=== PATIENT | female | born 2000 | race Caucasian/White ===

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

== ENCOUNTER 2020-06-30 17:41 | Inpatient (IN) | payer MEDICAID ==
[2020-06-30] MEDS ORDERED: LACTATED RINGERS 500 ML IV ONE (19:02)
[2020-06-30 19:33] LABS: Bacteria,Urine 3+ /HPF (Negative); Bilirubin,Urine NEG (Negative); Blood,Urine NEG (Negative); Color,Urine Amber (Yellow); Mucus,Urine 3+ /HPF
[2020-06-30] MEDS: LACTATED RINGERS 1000 ML IV SOLN IV SCH ×2 (19:39→20:30)
[2020-06-30] MEDS ORDERED: ACETAMINOPHEN 500 MG TAB PO ONE (20:00)
[2020-06-30] MEDS ORDERED: ACETAMINOPHEN 325 MG TAB PO PRN (20:12)
[2020-06-30 20:13] LABS: Alanine Aminotransferase 7 units/L (7-56); Albumin 3.4 g/dL (3.9-5); Blood Urea Nitrogen 7 mg/dL (7-17); Calcium 8.3 mg/dL (8.4-10.2); Hemolysis Index 0
[2020-06-30 20:22] LABS: BUN/Creatinine Ratio 14
[2020-06-30] MEDS ORDERED: ACETAMINOPHEN 500 MG TAB PO PRN (20:25)
[2020-06-30] MEDS ORDERED: DOCUSATE SODIUM 100 MG CAP PO PRN (20:39)
[2020-06-30] MEDS ORDERED: diphenhydrAMINE 25 MG CAP PO PRN (20:40)
[2020-06-30] MEDS ORDERED: ALUM-MAG HYDROXIDE-SIMETHICONE 200-200-20MG/5ML ORAL LIQD 30 ML PO PRN (20:40)
[2020-06-30] MEDS ORDERED: SIMETHICONE 80 MG CHEW TAB PO PRN (20:40)
[2020-06-30] MEDS ORDERED: MAGNESIUM HYDROXIDE (MOM) ORAL LIQD UDC PO PRN (20:40)
[2020-06-30] MEDS ORDERED: LACTATED RINGERS 1,000 ML IV SCH (20:45)
[2020-06-30 21:05] LABS: Basophils % (Auto) 0.1 % (0.0-1.8); Eosinophils % (Auto) 0.1 % (0.0-4.3); Hematocrit 31.8 % (30.3-42.9); Lymphocytes # (Auto) 1.1 K/mm3 (1.2-5.4); Lymphocytes % (Auto) 8.2 % (13.4-35.0); Mean Corpuscular HGB Conc 35 % (30-34); Mean Corpuscular Volume 87 fl (79-97); Monocytes # (Auto) 1.1 K/mm3 (0.0-0.8); Monocytes % (Auto) 7.8 % (0.0-7.3); Platelet Count 235 K/mm3 (140-440); Red Blood Count 3.67 M/mm3 (3.65-5.03); Red Cell Distribution Width 14.4 % (13.2-15.2)
[2020-06-30] MEDS: POTASSIUM CHLORIDE ER 20 MEQ TAB PO SCH (21:35)
--- NOTE | 2020-06-30 21:42 | XRay Report ---
CHEST 1 VIEW 06/30/2020 8:35 PM INDICATION / CLINICAL INFORMATION: febrile illness. COMPARISON: None available. FINDINGS: SUPPORT DEVICES: None. HEART / MEDIASTINUM: No significant abnormality. LUNGS / PLEURA: No significant pulmonary or pleural abnormality. No pneumothorax. ADDITIONAL FINDINGS: No significant additional findings. IMPRESSION: 1. No acute findings. Signer Name: Janes Coleman MD Signed: 06/30/2020 9:38 PM Workstation Name: [id number]
[2020-06-30] MEDS ORDERED: FAMOTIDINE 20 MG/2 ML INJ IV SCH (22:00)
--- NOTE | 2020-06-30 23:07 | History and Physical Report ---
History of Present Illness Date of examination: 06/30/20 Date of admission: 06/30/20 20:14 Chief complaint: Fever, chills, fatigue, dizziness and headache History of present illness: This is a 19 year-old female who presents complaining of chills, shivering, headache, fever, hip and back pain since yesterday afternoon. She denies vaginal bleeding, LOF, reports decrease movement. Denies coughing or SOB. She denies known exposure to COVID-19 and states no one in her household is ill. She also denies exposure to cat litter box during the as well as nausea, vomiting, diarrhea, contractions, dysuria, pelvic and abdominal pain. Past History : 2 Term Births: 1 Premature Births: 0 Living Children: 1 Para: 1 Mult. Births: 0 Prev : 0 Prev. attempt? 0 Aborta: 0 Elect. Ab: 0 Spont. 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 % Sun Exposure: rarely Family History Risk Factors: Family History of DC in females < 65 years old: no Family History of DC in males < 55 years old: no Dietary Counseling: pn yes Previous Alcohol Use: Signed On - 01/03/2017 Alcohol use: no Past Medical History: Reviewed history from 01/03/2017 and no changes required: Negative Past Medical History Past Surgical History: Reviewed history from 01/03/2017 and no changes required: negative Past Medical History Anesthesia Complications: negative Anemia: negative Autoimmune Disorder: negative Bleeding Disorder: negative Blood Transfusions: negative Breast Disease: negative Diabetes: negative Heart Disease: negative Hypertension: negative Hepatitis/Liver Disease: negative Kidney Disease/UTI: negative Neurologic/Epilepsy/Migraines: negative Phlebitis/Varicosities: negative Psychiatric: negative Pulmonary Disease/Asthma: negative Thyroid Disease: negative Hospitalizations: negative Surgery (Non-vault clerk): negative Abnormal PAP: negative EMILY Exposure: negative Infertility: negative Uterine Anomaly: negative Uterine Surgery (not C/S): negative Other Gynecologic Problems: negative Social Hx: Patient is single [employer] 12 th grade Infection History Hx of STD: none HIV Risk Eval: no Hepatitis B Risk Eval: low risk Personal hx. of genital herpes: no Partner hx. of genital herpes: no Rash, Viral, or Febrile illness since last LMP? no Varicella/Chicken Pox Status: No TB Risk: no Genetic History Congenital Heart Defect: Mom: no Dad: no Annmarie Disease: Mom: no Dad: no Thalassemia Mom: no Dad: no Neural Tube Defect Mom: no Dad: no Down's Syndrome Mom: no Dad: no Rubén-Sachs Mom: no Dad: no Sickle Cell Disease/Trait Mom: no Dad: no Hemophilia Mom: no Dad: no Muscular Dystrophy Mom: no Dad: no Cystic Fibrosis Mom: no Dad: no [place] Chorea Mom: no Dad: no Mental Retardation Mom: no Dad: no Fragile X Mom: no Dad: no Other Genetic/Chromosomal Disorder Mom: no Dad: no Child w/other defect Mom: no Dad: no Enviromental Exposures Xray Exposure: no Medication, drug, or alcohol use since LMP: no Chemical/Other Exposure: no Exposure to Cat Liter: yes Hx of Parvovirus (Fifth Disease): no Occupational Exposure to Children: none Active Medications (reviewed today): TABLET ( VIT-FE FUMARATE-FA TABS) Current Allergies (reviewed today): No known allergies Past History - Obstetrical History Expected Date of Delivery: 09/14/20 Actual Gestation: 29 Week(s) 1 Day(s) : 2 Hx # Term Pregnancies: 1 Medications and Allergies Allergies Allergy/AdvReac Type Severity Reaction Status Date / Time No Known Allergies Allergy Verified 08/18/17 08:10 Home Medications Medication Instructions Recorded Confirmed Last Taken Type One Daily Tablet 1 tab PO DAILY 06/30/20 06/30/20 06/29/20 10:00 History Active Meds: Active Medications Acetaminophen (Acetaminophen 500 Mg Tab) 1,000 mg PO Q6H PRN PRN Reason: Pain, Mild (1-3) Al Hydrox/Mg Hydrox/Simethicone (Alum-Mag Hydroxide-Simethicone [phone]/5ml Oral Liqd 30 Ml) 30 ml PO Q6H PRN PRN Reason: Indigestion Diphenhydramine HCl (Diphenhydramine 25 Mg Cap) 25 mg PO Q6H PRN PRN Reason: Itching Docusate Sodium (Docusate Sodium 100 Mg Cap) 100 mg PO Q12H PRN PRN Reason: Constipation Famotidine (Famotidine 20 Mg/2 Ml Inj) 20 mg IV BID [facility] Dextrose/Sodium Chloride (D5ns) 1,000 mls @ 125 mls/hr IV DIRECT MALGORZATA Lactated Ringer's (Lactated Ringers 1000 Ml Iv Soln) 1,000 ml IV DIRECT MALGORZATA Last Admin: 06/30/20 19:39 Dose: 1,000 ml Documented by: Magnesium Hydroxide (Magnesium Hydroxide (Mom) Oral Liqd Udc) 30 ml PO QHS PRN PRN Reason: Laxative Effect Multivitamins/Iron/Calcium ( Dhd73-Rh Fumarate-Folic Acid Vit Tab) 1 each PO QDAY MALGORZATA Potassium Chloride (Potassium Chloride Er 20 Meq Tab) 40 meq PO BID MALGORZATA Stop: 07/01/20 10:01 Last Admin: 06/30/20 21:35 Dose: 40 meq Documented by: Simethicone (Simethicone 80 Mg Chew Tab) 80 mg PO Q6H PRN PRN Reason: Gas pain Sodium Chloride (Sodium Chloride 0.9% 10 Ml Flush Syringe) 10 ml IV PRN PRN PRN Reason: LINE FLUSH Review of Systems All systems: negative Constitutional: fever, chills, sweats Musculoskeletal: low back pain - Vital Signs Vital signs: Vital Signs Pulse BP 160 H 106/66 06/30/20 18:55 06/30/20 18:55 Temp Pulse Resp BP Pulse Ox 97.9 F 106 H 17 103/63 99 06/30/20 22:51 06/30/20 22:54 06/30/20 22:51 06/30/20 21:39 06/30/20 22:54 - Physical Exam Breasts: Positive: deferred Lungs: Positive: Normal air movement, Other (? crackles (B) bases) Abdomen: Positive: normal appearance, soft, normal bowel sounds. Negative: distention, tenderness, guarding Extremities: Positive: normal. Negative: tenderness, edema - Obstetrical FHR: category 1 (Appropriate for [place]) Uterine Contraction Monitor Mode: External Uterine Contraction Pattern: Irregular Results Result Diagrams: 06/30/20 20:30 06/30/20 19:40 Abnormal lab results 06/30/20 06/30/20 06/30/20 Range/Units 19:40 20:30 Unknown WBC 13.9 H (4.5-11.0) K/mm3 MCHC 35 H (30-34) % Lymph % (Auto) 8.2 L (13.4-35.0) % [place] % (Auto) 7.8 H (0.0-7.3) % Lymph # (Auto) 1.1 L (1.2-5.4) K/mm3 [place] # (Auto) 1.1 H (0.0-0.8) K/mm3 Seg Neutrophils % 83.8 H (40.0-70.0) % Seg Neutrophils # 11.7 H (1.8-7.7) K/mm3 Sodium 130 L (137-145) mmol/L Potassium 3.2 L (3.6-5.0) mmol/L Chloride 97.8 L (98-107) mmol/L Carbon Dioxide 19 L (22-30) mmol/L Creatinine 0.5 L (0.6-1.2) mg/dL Glucose 112 H (65-100) mg/dL Calcium 8.3 L (8.4-10.2) mg/dL Albumin 3.4 L (3.9-5) g/dL Urine WBC (Auto) 71.0 H (0.0-6.0) /HPF U Epithel Cells (Auto) 42.0 H (0-13.0) /HPF All other labs normal. Chest x-ray: report reviewed Assessment and Plan - Patient Problems (1) 29 weeks gestation of Current Visit: Yes Status: Acute (2) Febrile illness, acute Current Visit: Yes Status: Acute Plan to address problem: No evidence for chorioamnionitis Blood and urine cultures ordered COVID-19 ordered Will start Rocephin empirically (3) Hypokalemia Current Visit: Yes Status: Acute Plan to address problem: KCl 40meq po bid x2 ordered, will recheck in the am (4) Hyponatremia Current Visit: Yes Status: Acute Plan to address problem: NS for IVF
[2020-06-30] MEDS: cefTRIAXone/NS 1 GM/50 ML 1 GM/50 ML BAG IV SCH (23:37)
[2020-06-30] MEDS: D5W/0.9% NACL 1,000 ML IV SCH (23:40)
[2020-07-01] MEDS ORDERED: LACTATED RINGERS 1,000 ML ONE (04:41)
[2020-07-01] MEDS ORDERED: LACTATED RINGERS 500 ML IV ONE (05:01)
[2020-07-01] MEDS: ACETAMINOPHEN 500 MG TAB PO ONE ×2 (05:21→18:13)
[2020-07-01] MEDS ORDERED: ACETAMINOPHEN 325 MG TAB PO PRN (06:49)
--- NOTE | 2020-07-01 07:37 | Progress Note ---
Assessment and Plan Patient resting in bed, states " I feel so much better." She states she still has some pain over her tailbone but overall feels much better. Temp 99.9 @ 0727 this morning and maternal tachycaria present. skin feels warm to touch, no CVAT, no abd tenderness or pain with palpation. frequent FM noted during assessment. Discussed labs and plan for today. Patient verbalizes understanding. UC and BC x2 pending. RN master repeat CBC & CMP. Will continue to monitor and consult ID if needed. - Patient Problems (1) 29 weeks gestation of Current Visit: Yes Status: Acute Plan to address problem: CAT 1 FHT no CTX noted (2) Febrile illness, acute Current Visit: Yes Status: Acute Plan to address problem: No evidence for chorioamnionitis at this time Blood and urine cultures - pending COVID-19 ordered to be collected today Rocephin empirically (3) Hypokalemia Current Visit: Yes Status: Acute Plan to address problem: labs ordered for this morning (4) Hyponatremia Current Visit: Yes Status: Acute Plan to address problem: labs ordered for this morning Subjective - Subjective Date of service: 07/01/20 Principal diagnosis: IUP @ 29+2; fever Patient reports: movement normal, no new complaints, no loss of fluid, no vaginal bleeding, no contractions Objective - Vital Signs Vital Signs: Vital Signs - 12hr 06/30/20 06/30/20 06/30/20 19:37 19:39 19:44 Temperature Pulse Rate 153 H 149 H 140 H Respiratory Rate Blood Pressure 101/60 O2 Sat by Pulse 97 98 Oximetry 06/30/20 06/30/20 06/30/20 19:49 19:52 19:54 Temperature Pulse Rate 135 H 133 H 136 H Respiratory Rate Blood Pressure 97/54 O2 Sat by Pulse 97 98 Oximetry 06/30/20 06/30/20 06/30/20 19:59 20:04 20:07 Temperature Pulse Rate 131 H 130 H 131 H Respiratory Rate Blood Pressure 93/51 O2 Sat by Pulse 97 98 Oximetry 06/30/20 06/30/20 06/30/20 20:09 20:14 20:19 Temperature Pulse Rate 132 H 130 H 130 H Respiratory Rate Blood Pressure O2 Sat by Pulse 97 97 98 Oximetry 06/30/20 06/30/20 06/30/20 20:22 20:24 20:29 Temperature Pulse Rate 134 H 133 H 141 H Respiratory Rate Blood Pressure 90/52 O2 Sat by Pulse 98 97 Oximetry 06/30/20 06/30/20 06/30/20 20:49 20:54 20:59 Temperature Pulse Rate 127 H 134 H 129 H Respiratory Rate Blood Pressure O2 Sat by Pulse 100 100 99 Oximetry 06/30/20 06/30/20 06/30/20 21:04 21:09 21:13 Temperature 98.9 F Pulse Rate 125 H 133 H 127 H Respiratory 18 Rate Blood Pressure O2 Sat by Pulse 100 100 Oximetry 06/30/20 06/30/20 06/30/20 21:17 21:22 21:27 Temperature Pulse Rate 134 H 134 H 132 H Respiratory Rate Blood Pressure O2 Sat by Pulse 100 99 100 Oximetry 06/30/20 06/30/20 06/30/20 21:32 21:37 21:39 Temperature Pulse Rate 119 H 129 H 118 H Respiratory Rate Blood Pressure 103/63 O2 Sat by Pulse 99 100 Oximetry 06/30/20 06/30/20 06/30/20 21:42 21:54 21:59 Temperature Pulse Rate 125 H 129 H 123 H Respiratory Rate Blood Pressure O2 Sat by Pulse 100 100 98 Oximetry 06/30/20 06/30/20 06/30/20 22:04 22:09 22:14 Temperature Pulse Rate 116 H 111 H 105 H Respiratory Rate Blood Pressure O2 Sat by Pulse 99 99 99 Oximetry 06/30/20 06/30/20 06/30/20 22:19 22:24 22:29 Temperature Pulse Rate 108 H 108 H 106 H Respiratory Rate Blood Pressure O2 Sat by Pulse 100 98 98 Oximetry 06/30/20 06/30/20 06/30/20 22:34 22:39 22:44 Temperature Pulse Rate 105 H 107 H 103 H Respiratory Rate Blood Pressure O2 Sat by Pulse 98 99 99 Oximetry 06/30/20 06/30/20 06/30/20 22:49 22:51 22:54 Temperature 97.9 F Pulse Rate 108 H 106 H Respiratory 17 Rate Blood Pressure O2 Sat by Pulse 98 99 Oximetry 06/30/20 06/30/20 06/30/20 23:16 23:21 23:26 Temperature Pulse Rate 113 H 106 H 103 H Respiratory Rate Blood Pressure O2 Sat by Pulse 99 99 100 Oximetry 06/30/20 06/30/20 06/30/20 23:31 23:36 23:39 Temperature Pulse Rate 105 H 105 H 109 H Respiratory Rate Blood Pressure 100/61 O2 Sat by Pulse 98 99 Oximetry 06/30/20 06/30/20 06/30/20 23:41 23:46 23:51 Temperature Pulse Rate 107 H 102 H 110 H Respiratory Rate Blood Pressure O2 Sat by Pulse 99 99 100 Oximetry 06/30/20 07/01/20 07/01/20 23:56 00:01 00:06 Temperature Pulse Rate 118 H 113 H 103 H Respiratory Rate Blood Pressure O2 Sat by Pulse 99 99 96 Oximetry 07/01/20 07/01/20 07/01/20 00:11 00:13 00:16 Temperature 97.7 F Pulse Rate 114 H 98 H Respiratory 16 Rate Blood Pressure O2 Sat by Pulse 99 98 Oximetry 07/01/20 07/01/20 07/01/20 00:21 00:26 00:31 Temperature Pulse Rate 104 H 106 H 104 H Respiratory Rate Blood Pressure O2 Sat by Pulse 98 98 97 Oximetry 07/01/20 07/01/20 07/01/20 00:36 00:41 00:46 Temperature Pulse Rate 99 H 96 H 105 H Respiratory Rate Blood Pressure O2 Sat by Pulse 97 97 97 Oximetry 07/01/20 07/01/20 07/01/20 00:51 00:56 01:01 Temperature Pulse Rate 100 H 107 H 107 H Respiratory Rate Blood Pressure O2 Sat by Pulse 96 97 97 Oximetry 07/01/20 07/01/20 07/01/20 01:06 01:11 01:16 Temperature Pulse Rate 108 H 103 H 107 H Respiratory Rate Blood Pressure O2 Sat by Pulse 97 97 97 Oximetry 07/01/20 07/01/20 07/01/20 01:21 01:26 01:31 Temperature Pulse Rate 104 H 106 H 103 H Respiratory Rate Blood Pressure O2 Sat by Pulse 98 98 98 Oximetry 07/01/20 07/01/20 07/01/20 01:36 01:41 01:46 Temperature Pulse Rate 107 H 104 H 98 H Respiratory Rate Blood Pressure O2 Sat by Pulse 99 99 98 Oximetry 07/01/20 07/01/20 07/01/20 01:51 01:56 02:01 Temperature Pulse Rate 107 H 101 H 103 H Respiratory Rate Blood Pressure O2 Sat by Pulse 98 99 98 Oximetry 07/01/20 07/01/20 07/01/20 02:06 02:11 02:16 Temperature Pulse Rate 102 H 107 H 102 H Respiratory Rate Blood Pressure O2 Sat by Pulse 99 100 99 Oximetry 07/01/20 07/01/20 07/01/20 02:21 02:26 02:31 Temperature Pulse Rate 104 H 106 H 110 H Respiratory Rate Blood Pressure O2 Sat by Pulse 100 100 100 Oximetry 07/01/20 07/01/20 07/01/20 02:36 02:41 02:46 Temperature Pulse Rate 109 H 105 H 106 H Respiratory Rate Blood Pressure O2 Sat by Pulse 100 100 99 Oximetry 07/01/20 07/01/20 07/01/20 02:51 02:56 03:01 Temperature Pulse Rate 108 H 105 H 105 H Respiratory Rate Blood Pressure O2 Sat by Pulse 99 99 100 Oximetry 07/01/20 07/01/20 07/01/20 03:06 03:11 03:16 Temperature Pulse Rate 108 H 115 H 123 H Respiratory Rate Blood Pressure O2 Sat by Pulse 100 100 100 Oximetry 07/01/20 07/01/20 07/01/20 03:21 03:22 03:23 Temperature 100 F H Pulse Rate 126 H 122 H Respiratory 15 Rate Blood Pressure 98/54 O2 Sat by Pulse 100 Oximetry 07/01/20 07/01/20 07/01/20 03:26 03:31 03:36 Temperature Pulse Rate 118 H 119 H 120 H Respiratory Rate Blood Pressure O2 Sat by Pulse 100 98 98 Oximetry 07/01/20 07/01/20 07/01/20 03:41 03:46 03:51 Temperature Pulse Rate 122 H 130 H 129 H Respiratory Rate Blood Pressure O2 Sat by Pulse 100 99 99 Oximetry 07/01/20 07/01/20 07/01/20 03:56 04:01 04:06 Temperature Pulse Rate 129 H 128 H 131 H Respiratory Rate Blood Pressure O2 Sat by Pulse 99 99 100 Oximetry 07/01/20 07/01/20 07/01/20 04:18 04:19 04:20 Temperature 103 F H Pulse Rate 74 149 H Respiratory Rate Blood Pressure O2 Sat by Pulse 98 92 Oximetry 07/01/20 07/01/20 07/01/20 04:23 04:28 04:33 Temperature Pulse Rate 141 H 147 H 138 H Respiratory Rate Blood Pressure O2 Sat by Pulse 99 99 99 Oximetry 07/01/20 07/01/20 07/01/20 04:38 04:43 04:48 Temperature Pulse Rate 142 H 137 H 150 H Respiratory Rate Blood Pressure O2 Sat by Pulse 100 99 100 Oximetry 07/01/20 07/01/20 07/01/20 04:53 04:58 05:03 Temperature Pulse Rate 139 H 139 H 141 H Respiratory Rate Blood Pressure O2 Sat by Pulse 99 100 100 Oximetry 07/01/20 07/01/20 07/01/20 05:08 05:13 05:18 Temperature Pulse Rate 140 H 137 H 134 H Respiratory Rate Blood Pressure O2 Sat by Pulse 100 99 98 Oximetry 07/01/20 07/01/20 07/01/20 05:23 05:28 05:33 Temperature Pulse Rate 134 H 133 H 130 H Respiratory Rate Blood Pressure O2 Sat by Pulse 98 99 97 Oximetry 07/01/20 07/01/20 07/01/20 05:38 05:43 05:48 Temperature Pulse Rate 124 H 126 H 125 H Respiratory Rate Blood Pressure O2 Sat by Pulse 97 97 98 Oximetry 07/01/20 07/01/20 07/01/20 05:53 05:58 06:03 Temperature 102.3 F H Pulse Rate 126 H 122 H 119 H Respiratory Rate Blood Pressure O2 Sat by Pulse 97 97 98 Oximetry 07/01/20 07/01/20 07/01/20 06:08 06:13 06:18 Temperature Pulse Rate 123 H 117 H 119 H Respiratory Rate Blood Pressure O2 Sat by Pulse 98 96 97 Oximetry 07/01/20 07/01/20 07/01/20 06:23 06:28 06:33 Temperature Pulse Rate 114 H 114 H 116 H Respiratory Rate Blood Pressure O2 Sat by Pulse 97 96 96 Oximetry 07/01/20 07/01/20 07/01/20 06:38 06:43 06:48 Temperature Pulse Rate 114 H 126 H 111 H Respiratory Rate Blood Pressure O2 Sat by Pulse 96 98 97 Oximetry 07/01/20 07/01/20 07/01/20 06:53 06:58 07:03 Temperature Pulse Rate 116 H 114 H 118 H Respiratory Rate Blood Pressure O2 Sat by Pulse 99 97 99 Oximetry 07/01/20 07/01/20 07/01/20 07:06 07:08 07:13 Temperature Pulse Rate 123 H 118 H 118 H Respiratory Rate Blood Pressure 95/52 O2 Sat by Pulse 99 99 Oximetry 07/01/20 07/01/20 07/01/20 07:18 07:23 07:27 Temperature 99.9 F H Pulse Rate 125 H 121 H Respiratory Rate Blood Pressure O2 Sat by Pulse 100 97 Oximetry 07/01/20 07/01/20 07:28 07:33 Temperature Pulse Rate 120 H 119 H Respiratory Rate Blood Pressure O2 Sat by Pulse 98 98 Oximetry - Exam Cardiovascular: Regular rate Lungs: Normal air movement Abdomen: Present: normal appearance, soft. Absent: tenderness, guarding, rigidity Vulva: both: normal Uterus: Present: normal, fundal height above umbilicus FHR: category 1 Uterine Contraction Monitor Mode: External Uterine Contraction Pattern: Absent Uterine Tone Measurement Phase: Resting Extremities: normal Deep Tendon Reflex Grade: Normal +2 - Labs Labs: Abnormal Labs 06/30/20 06/30/20 06/30/20 19:40 20:30 Unknown WBC 13.9 H MCHC 35 H Lymph % (Auto) 8.2 L [place] % (Auto) 7.8 H Lymph # (Auto) 1.1 L [place] # (Auto) 1.1 H Seg Neutrophils % 83.8 H Seg Neutrophils # 11.7 H Sodium 130 L Potassium 3.2 L Chloride 97.8 L Carbon Dioxide 19 L Creatinine 0.5 L Glucose 112 H Calcium 8.3 L Albumin 3.4 L Urine WBC (Auto) 71.0 H U Epithel Cells (Auto) 42.0 H Laboratory Results - last 24 hr 06/30/20 06/30/20 06/30/20 19:40 20:30 20:30 WBC 13.9 H RBC 3.67 Hgb 11.0 Hct 31.8 MCV 87 MCH 30 MCHC 35 H RDW 14.4 Plt Count 235 Lymph % (Auto) 8.2 L [place] % (Auto) 7.8 H Eos % (Auto) 0.1 Baso % (Auto) 0.1 Lymph # (Auto) 1.1 L [place] # (Auto) 1.1 H Eos # (Auto) 0.0 Baso # (Auto) 0.0 Seg Neutrophils % 83.8 H Seg Neutrophils # 11.7 H Sodium 130 L Potassium 3.2 L Chloride 97.8 L Carbon Dioxide 19 L Anion Gap 16 BUN 7 Creatinine 0.5 L Estimated GFR > 60 BUN/Creatinine Ratio 14 Glucose 112 H Lactic Acid Calcium 8.3 L Total Bilirubin 0.40 AST 14 ALT 7 Alkaline Phosphatase 104 Total Protein 6.9 Albumin 3.4 L Albumin/Globulin Ratio 1.0 Urine Color Urine Turbidity Urine pH Ur Specific [place] Urine Protein Urine Glucose (UA) Urine Ketones Urine Blood Urine Nitrite Urine Bilirubin Urine Urobilinogen Ur Leukocyte Esterase Urine WBC (Auto) Urine RBC (Auto) U Epithel Cells (Auto) Urine Bacteria (Auto) Urine Mucus Blood Type O POSITIVE Antibody Screen Negative 06/30/20 06/30/20 21:03 Unknown WBC RBC Hgb Hct MCV MCH MCHC RDW Plt Count Lymph % (Auto) [place] % (Auto) Eos % (Auto) Baso % (Auto) Lymph # (Auto) [place] # (Auto) Eos # (Auto) Baso # (Auto) Seg Neutrophils % Seg Neutrophils # Sodium Potassium Chloride Carbon Dioxide Anion Gap BUN Creatinine Estimated GFR BUN/Creatinine Ratio Glucose Lactic Acid 1.40 Calcium Total Bilirubin AST ALT Alkaline Phosphatase Total Protein Albumin Albumin/Globulin Ratio Urine Color [place] Urine Turbidity Cloudy Urine pH 6.0 Ur Specific [place] 1.020 Urine Protein 100 mg/dl Urine Glucose (UA) Neg Urine Ketones 80 Urine Blood Neg Urine Nitrite Neg Urine Bilirubin Neg Urine Urobilinogen 4.0 Ur Leukocyte Esterase Lg Urine WBC (Auto) 71.0 H Urine RBC (Auto) 29.0 U Epithel Cells (Auto) 42.0 H Urine Bacteria (Auto) 3+ Urine Mucus 3+ Blood Type Antibody Screen
[2020-07-01 08:17] LABS: Basophils % (Auto) 0.1 % (0.0-1.8); Eosinophils % (Auto) 0.1 % (0.0-4.3); Hematocrit 27.3 % (30.3-42.9); Hemoglobin 9.1 gm/dl (10.1-14.3); Lymphocytes % (Auto) 8.9 % (13.4-35.0); Mean Corpuscular HGB Conc 34 % (30-34); Mean Corpuscular Volume 87 fl (79-97); Monocytes % (Auto) 8.8 % (0.0-7.3); Platelet Count 212 K/mm3 (140-440); Red Blood Count 3.15 M/mm3 (3.65-5.03); Red Cell Distribution Width 14.4 % (13.2-15.2)
[2020-07-01 08:40] LABS: Alanine Aminotransferase 7 units/L (7-56); Albumin 2.6 g/dL (3.9-5); BUN/Creatinine Ratio 13; Blood Urea Nitrogen 5 mg/dL (7-17); Calcium 7.6 mg/dL (8.4-10.2); Hemolysis Index 0
[2020-07-01] MEDS: D5W/0.9% NACL 1,000 ML IV SCH (10:31)
[2020-07-01] MEDS: cefTRIAXone/NS 1 GM/50 ML 1 GM/50 ML BAG IV SCH (10:31)
[2020-07-01] MEDS: POTASSIUM CHLORIDE ER 20 MEQ TAB PO SCH ×2 (10:32→18:53)
[2020-07-01] MEDS: PRENATAL VIT27-FE FUMARATE-FOLIC ACID VIT TAB PO SCH (10:32)
[2020-07-01] MEDS ORDERED: POTASSIUM CHLORIDE ER 20 MEQ TAB PO NR (10:34)
--- NOTE | 2020-07-01 11:16 | Consultation ---
History of Present Illness - Reason for Consult Consult date: 07/01/20 Fever unknown origin/ Requesting physician: NILDA JOSUE - History of Present Illness 19-year-old female with no medical history, admitted on 06/30/2020 with 29 weeks , secondary to 24-hour history of chills high fever, right lower back pain/flank pain. Increased urinary frequency however denies any dysuria, hematuria. 3 of previous UTIs. Patient denies any history of's. Patient denies any vagina bleeding. Patient denies any cough or shortness of breath. On arrival, temperature 103, HR 160, RR 97, BP 106/66. Initial WBC 13.9. Creatinine 0.5. Urinalysis with 71 WBCs and large leukocyte esterase. Urine culture 07/15/2020 with gram-negative bacilli> 100,000 CFU. Blood culture 06/30/2020 pending. Chest x-ray unremarkable. Review of Systems: positive in bold print General: fever, chills, malaise Cutaneous: rash, pruritus Head: headaches or injury Eyes: changes in vision, eye pain, double vision Ears: ear pain, ear discharge, ringing or hearing loss Nose: nose bleeding, stuffiness Mouth & throat: bleeding gums, horseness, no dental problems, or swollen glands Neck: no pain, node enlargement/lumps, tyroid enlargement or tenderness Respiratory: SOB, cough, MONGE, wheezing, sputum, hemoptysis, pleuritic chest pain Cardiovascular: chest pain, leg edema, cyanosis, MONGE, orthopnea Musculoskeletal: edema, deformities, pain Gastrointestinal: nausea, vomiting, hematemesis, diarrhea, constipation, melena, bright red blood in stools, fecal incontinence, jaundice Genitourinary/Reproductive: frequent urination, right flank pain, denies dysuria, hematuria, incontinence Neurogical: seizures, headaches, weakness, paresthesias, loss of speech or vision; memory loss, vertigo, tremors, numbness Psychiatric: stable mood; excessive anxiety, sadness or moodiness Medications and Allergies Allergies Allergy/AdvReac Type Severity Reaction Status Date / Time No Known Allergies Allergy Verified 08/18/17 08:10 Home Medications Medication Instructions Recorded Confirmed Last Taken Type One Daily Tablet 1 tab PO DAILY 06/30/20 06/30/20 06/29/20 10:00 History Active Meds: Active Medications Acetaminophen (Acetaminophen 500 Mg Tab) 1,000 mg PO Q6H PRN PRN Reason: Pain, Mild (1-3) Al Hydrox/Mg Hydrox/Simethicone (Alum-Mag Hydroxide-Simethicone [phone]/5ml Oral Liqd 30 Ml) 30 ml PO Q6H PRN PRN Reason: Indigestion Diphenhydramine HCl (Diphenhydramine 25 Mg Cap) 25 mg PO Q6H PRN PRN Reason: Itching Docusate Sodium (Docusate Sodium 100 Mg Cap) 100 mg PO Q12H PRN PRN Reason: Constipation Dextrose/Sodium Chloride (D5ns) 1,000 mls @ 125 mls/hr IV DIRECT MALGORZATA Last Admin: 07/01/20 10:31 Dose: 125 mls/hr Documented by: Ceftriaxone Sodium (Rocephin/Ns 1 Gm/50 Ml) 1 gm in 50 mls @ 100 mls/hr IV Q24 HR MALGORZATA; Protocol Stop: 07/02/20 10:29 Last Admin: 07/01/20 10:31 Dose: 100 mls/hr Documented by: Magnesium Hydroxide (Magnesium Hydroxide (Mom) Oral Liqd Udc) 30 ml PO QHS PRN PRN Reason: Laxative Effect Multivitamins/Iron/Calcium ( Frq40-Dr Fumarate-Folic Acid Vit Tab) 1 each PO QDAY MALGORZATA Last Admin: 07/01/20 10:32 Dose: 1 each Documented by: Potassium Chloride (Potassium Chloride Er 20 Meq Tab) 40 meq PO ONCE NR Stop: 07/01/20 13:00 Simethicone (Simethicone 80 Mg Chew Tab) 80 mg PO Q6H PRN PRN Reason: Gas pain Sodium Chloride (Sodium Chloride 0.9% 10 Ml Flush Syringe) 10 ml IV PRN PRN PRN Reason: LINE FLUSH Physical Examination - Physical Exam Narrative exam: General appearance: Alert in NAD pleasant Eyes: anicteric sclerae, moist conjunctivae; no lid-lag; PERRLA HENT: Normocephalic, Atraumatic; normal external ears, nares open, oropharynx clear Neck: supple, tracheal midline, no JVD Lungs: CTA, with normal respiratory effort and no intercostal retractions CV: RRR no murmur Abdomen: Soft, non-tender; uterus. No costovertebral angle tenderness Extremities: no edema, no cyanosis Skin: No rash. Psych: no agitated Neuro: alert and oriented x 3. Moving all extermities - Constitutional Vitals: Vital Signs Temp Pulse Resp BP Pulse Ox 98.7 F 116 H 15 95/52 100 07/01/20 10:33 07/01/20 11:06 07/01/20 03:22 07/01/20 07:06 07/01/20 11:06 Temperature -Last 24 Hours Temperature 98.7 F Temperature 99.9 F Temperature 102.3 F Temperature 103 F Temperature 100 F Temperature 97.7 F Temperature 97.9 F Temperature 98.9 F Temperature 103 F Temperature 103 F Results - Labs CBC & Chem 7: 07/01/20 08:04 07/01/20 08:04 Labs: Abnormal lab results 06/30/20 06/30/20 06/30/20 Range/Units 19:40 20:30 Unknown WBC 13.9 H (4.5-11.0) K/mm3 RBC (3.65-5.03) M/mm3 Hgb (10.1-14.3) gm/dl Hct (30.3-42.9) % MCHC 35 H (30-34) % Lymph % (Auto) 8.2 L (13.4-35.0) % [place] % (Auto) 7.8 H (0.0-7.3) % Lymph # (Auto) 1.1 L (1.2-5.4) K/mm3 [place] # (Auto) 1.1 H (0.0-0.8) K/mm3 Seg Neutrophils % 83.8 H (40.0-70.0) % Seg Neutrophils # 11.7 H (1.8-7.7) K/mm3 Sodium 130 L (137-145) mmol/L Potassium 3.2 L (3.6-5.0) mmol/L Chloride 97.8 L (98-107) mmol/L Carbon Dioxide 19 L (22-30) mmol/L BUN (7-17) mg/dL Creatinine 0.5 L (0.6-1.2) mg/dL Glucose 112 H (65-100) mg/dL Calcium 8.3 L (8.4-10.2) mg/dL Total Protein (6.3-8.2) g/dL Albumin 3.4 L (3.9-5) g/dL Urine WBC (Auto) 71.0 H (0.0-6.0) /HPF U Epithel Cells (Auto) 42.0 H (0-13.0) /HPF 07/01/20 07/01/20 Range/Units 08:04 08:04 WBC 11.7 H (4.5-11.0) K/mm3 RBC 3.15 L (3.65-5.03) M/mm3 Hgb 9.1 L (10.1-14.3) gm/dl Hct 27.3 L (30.3-42.9) % MCHC (30-34) % Lymph % (Auto) 8.9 L (13.4-35.0) % [place] % (Auto) 8.8 H (0.0-7.3) % Lymph # (Auto) 1.0 L (1.2-5.4) K/mm3 [place] # (Auto) 1.0 H (0.0-0.8) K/mm3 Seg Neutrophils % 82.1 H (40.0-70.0) % Seg Neutrophils # 9.6 H (1.8-7.7) K/mm3 Sodium 135 L (137-145) mmol/L Potassium 3.3 L (3.6-5.0) mmol/L Chloride (98-107) mmol/L Carbon Dioxide 20 L (22-30) mmol/L BUN 5 L (7-17) mg/dL Creatinine 0.4 L (0.6-1.2) mg/dL Glucose 106 H (65-100) mg/dL Calcium 7.6 L (8.4-10.2) mg/dL Total Protein 5.7 L (6.3-8.2) g/dL Albumin 2.6 L (3.9-5) g/dL Urine WBC (Auto) (0.0-6.0) /HPF U Epithel Cells (Auto) (0-13.0) /HPF Assessment and Plan Cultures: Urine culture 07/15/2020 gram-negative bacilli> 100,000 CFU. Blood culture 06/30/2020 pending. Assessment: 19-year-old female with no medical history, admitted on 06/30/2020 with 29 weeks , secondary to 24-hour history of chills high fever, right lower back pain/flank pain: #Acute sepsis: Present on admission with fever, tachycardia, leukocytosis; likely due to UTI/pyelonephritis. Blood cultures pending. Chest x-ray negative . #Acute UTI: Suspected right-sided pyelonephritis. Urine culture growing gram- negative bacilli. # 29 weeks Recommendations: -Continue ceftriaxone will increase to 2 g IV once a day -Obtain renal ultrasound, rule out pyelonephritis, hydronephrosis, stone -Follow-up blood culture and urine culture -If isolate is sensitive to cefazolin, okay to discharge on Ceftin 500 mg p.o. twice daily, duration to be determined. If this is only cystitis 7 days is enough. If this is pyelonephritis 14 days recommended. -ID clinic follow-up in 1 to 2 weeks -Educated about importance of waiting until fever breaks for 24 hours before discharge, patient desires to go home tomorrow Will follow. Kassandra Caba MD Infectious Diseases [employer] System Install[employer] [facility] M [phone] O [phone]
[2020-07-01] MEDS ORDERED: cefTRIAXone/NS 1 GM/50 ML 1 GM/50 ML BAG IV SCH (16:00)
[2020-07-01] MEDS: SODIUM CHLORIDE 0.9% 1000 ML 1,000 ML IV SCH (20:56)
[2020-07-02] MEDS: POTASSIUM CHLORIDE ER 20 MEQ TAB PO SCH (09:44)
[2020-07-02] MEDS: cefTRIAXone/NS 2 GM/100 ML 2 GM/100 ML BAG IV SCH (09:44)
[2020-07-02] MEDS: PRENATAL VIT27-FE FUMARATE-FOLIC ACID VIT TAB PO SCH (09:45)
--- NOTE | 2020-07-02 09:52 | Ultrasound Report ---
Renal ultrasound INDICATION: Flank pain. Possible pyelonephritis FINDINGS: Both kidneys measure about 12 cm in length. There is mild bilateral hydronephrosis. There i s a focal tiny echogenic structure measuring about 3 mm within the lower pole the left kidney that ma y represent a focal calculus. Urinary bladder is fluid distended. No drainable perinephric collection s identified. IMPRESSION: Bilateral hydronephrosis. If there strong clinical concern for acute pyelonephritis CT of the abdomen and pelvis with IV contrast is suggested for further evaluation. Signer Name: Andrei James MD Signed: 07/02/2020 9:48 AM Workstation Name: [id number]
[2020-07-02] MEDS: SODIUM CHLORIDE 0.9% 1000 ML 1,000 ML IV SCH (09:57)
--- NOTE | 2020-07-02 10:30 | Progress Note ---
Assessment and Plan Pt reports she feels much better than she did on admission; denies all complaints today. 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 POC reviewed with pt and RN. - Patient Problems (1) 29 weeks gestation of Current Visit: Yes Status: Acute Plan to address problem: Continue to monitor (2) Febrile illness, acute Current Visit: Yes Status: Acute Plan to address problem: No evidence of chorio at this time Coronavirus PCR result negative Blood cultures pending; preliminary result negative Urine cultures pending; preliminary result gram negative goldie Renal ultrasound ordered Continue Rocephin IV as ordered (3) Hypokalemia Current Visit: Yes Status: Acute Plan to address problem: labs and medications as ordered (4) Hyponatremia Current Visit: Yes Status: Acute Plan to address problem: labs ordered Subjective - Subjective Date of service: 07/02/20 Principal diagnosis: IUP @ 29+3; fever Patient reports: movement normal, no new complaints, no loss of fluid, no vaginal bleeding, no contractions Objective - Vital Signs Vital Signs: Vital Signs - 12hr 07/01/20 07/01/20 07/02/20 23:35 23:36 00:07 Temperature 98.3 F Pulse Rate 103 H 103 H 103 H Respiratory Rate Blood Pressure 94/52 Blood Pressure [Right] O2 Sat by Pulse 99 Oximetry 07/02/20 07/02/20 07/02/20 00:12 00:17 00:22 Temperature Pulse Rate 98 H 93 H 94 H Respiratory Rate Blood Pressure Blood Pressure [Right] O2 Sat by Pulse 99 98 98 Oximetry 07/02/20 07/02/20 07/02/20 00:27 00:32 00:37 Temperature Pulse Rate 92 H 96 H 91 H Respiratory Rate Blood Pressure Blood Pressure [Right] O2 Sat by Pulse 98 97 98 Oximetry 07/02/20 07/02/20 07/02/20 00:42 00:47 00:52 Temperature Pulse Rate 91 H 94 H 90 Respiratory Rate Blood Pressure Blood Pressure [Right] O2 Sat by Pulse 98 98 98 Oximetry 07/02/20 07/02/20 07/02/20 00:57 01:02 04:45 Temperature 97.7 F Pulse Rate 90 91 H Respiratory 18 Rate Blood Pressure Blood Pressure [Right] O2 Sat by Pulse 98 98 Oximetry 07/02/20 07/02/20 07/02/20 04:47 04:59 05:04 Temperature Pulse Rate 103 H 107 H 96 H Respiratory Rate Blood Pressure 99/57 Blood Pressure [Right] O2 Sat by Pulse 97 99 Oximetry 07/02/20 07/02/20 07/02/20 05:09 05:14 05:19 Temperature Pulse Rate 99 H 112 H 97 H Respiratory Rate Blood Pressure Blood Pressure [Right] O2 Sat by Pulse 99 98 98 Oximetry 07/02/20 07/02/20 07/02/20 05:24 05:29 05:34 Temperature Pulse Rate 98 H 98 H 100 H Respiratory Rate Blood Pressure Blood Pressure [Right] O2 Sat by Pulse 98 98 98 Oximetry 07/02/20 07/02/20 07/02/20 05:39 05:44 05:49 Temperature Pulse Rate 96 H 98 H 108 H Respiratory Rate Blood Pressure Blood Pressure [Right] O2 Sat by Pulse 98 98 98 Oximetry 07/02/20 07/02/20 07/02/20 05:54 05:59 06:04 Temperature Pulse Rate 101 H 104 H 94 H Respiratory Rate Blood Pressure Blood Pressure [Right] O2 Sat by Pulse 98 97 99 Oximetry 07/02/20 07/02/20 07/02/20 06:09 06:14 06:19 Temperature Pulse Rate 90 98 H 95 H Respiratory Rate Blood Pressure Blood Pressure [Right] O2 Sat by Pulse 97 98 97 Oximetry 07/02/20 07/02/20 07/02/20 06:24 06:29 07:26 Temperature Pulse Rate 97 H 111 H Respiratory Rate Blood Pressure Blood Pressure [Right] O2 Sat by Pulse 97 98 91 Oximetry 07/02/20 07/02/20 07/02/20 07:27 07:28 07:30 Temperature 98.8 F Pulse Rate 100 H 102 H 106 H Respiratory 20 Rate Blood Pressure 98/51 Blood Pressure 98/51 [Right] O2 Sat by Pulse 97 Oximetry 07/02/20 07/02/20 07/02/20 07:33 07:38 07:43 Temperature Pulse Rate 108 H 101 H 106 H Respiratory Rate Blood Pressure Blood Pressure [Right] O2 Sat by Pulse 98 99 99 Oximetry 07/02/20 07/02/20 07/02/20 07:48 07:53 07:58 Temperature Pulse Rate 98 H 95 H 95 H Respiratory Rate Blood Pressure Blood Pressure [Right] O2 Sat by Pulse 99 99 98 Oximetry 07/02/20 07/02/20 07/02/20 08:03 08:08 08:13 Temperature Pulse Rate 90 96 H 86 Respiratory Rate Blood Pressure Blood Pressure [Right] O2 Sat by Pulse 98 99 98 Oximetry 07/02/20 07/02/20 07/02/20 08:18 08:23 09:36 Temperature Pulse Rate 110 H 111 H 107 H Respiratory Rate Blood Pressure Blood Pressure [Right] O2 Sat by Pulse 100 100 100 Oximetry 07/02/20 07/02/20 07/02/20 09:41 09:46 09:51 Temperature Pulse Rate 119 H 111 H 107 H Respiratory Rate Blood Pressure Blood Pressure [Right] O2 Sat by Pulse 99 99 100 Oximetry 07/02/20 07/02/20 07/02/20 09:56 10:01 10:06 Temperature Pulse Rate 110 H 105 H 104 H Respiratory Rate Blood Pressure Blood Pressure [Right] O2 Sat by Pulse 100 100 100 Oximetry 07/02/20 10:11 Temperature Pulse Rate 104 H Respiratory Rate Blood Pressure Blood Pressure [Right] O2 Sat by Pulse 100 Oximetry - Exam Breasts: deferred Cardiovascular: Regular rate Lungs: Clear to auscultation, Normal air movement Abdomen: Present: normal appearance, soft Uterus: Present: normal FHR: auscultation normal, category 1 Uterine Contraction Monitor Mode: External Uterine Contraction Pattern: Absent Extremities: normal - Labs Labs: Abnormal Labs 06/30/20 06/30/20 06/30/20 19:40 20:30 Unknown WBC 13.9 H RBC Hgb Hct MCHC 35 H Lymph % (Auto) 8.2 L [place] % (Auto) 7.8 H Lymph # (Auto) 1.1 L [place] # (Auto) 1.1 H Seg Neutrophils % 83.8 H Seg Neutrophils # 11.7 H Sodium 130 L Potassium 3.2 L Chloride 97.8 L Carbon Dioxide 19 L BUN Creatinine 0.5 L Glucose 112 H Calcium 8.3 L Total Protein Albumin 3.4 L Urine WBC (Auto) 71.0 H U Epithel Cells (Auto) 42.0 H 07/01/20 07/01/20 08:04 08:04 WBC 11.7 H RBC 3.15 L Hgb 9.1 L Hct 27.3 L MCHC Lymph % (Auto) 8.9 L [place] % (Auto) 8.8 H Lymph # (Auto) 1.0 L [place] # (Auto) 1.0 H Seg Neutrophils % 82.1 H Seg Neutrophils # 9.6 H Sodium 135 L Potassium 3.3 L Chloride Carbon Dioxide 20 L BUN 5 L Creatinine 0.4 L Glucose 106 H Calcium 7.6 L Total Protein 5.7 L Albumin 2.6 L Urine WBC (Auto) U Epithel Cells (Auto) Laboratory Results - last 24 hr 07/01/20 09:20 Coronavirus (PCR) Negative
[2020-07-03] MEDS: SODIUM CHLORIDE 0.9% 1000 ML 1,000 ML IV SCH (03:40)
[2020-07-03] MEDS: PRENATAL VIT27-FE FUMARATE-FOLIC ACID VIT TAB PO SCH (09:54)
[2020-07-03] MEDS: POTASSIUM CHLORIDE ER 20 MEQ TAB PO SCH (09:55)
[2020-07-03] MEDS: cefTRIAXone/NS 2 GM/100 ML 2 GM/100 ML BAG IV SCH (09:55)
--- NOTE | 2020-07-03 10:04 | Progress Note ---
<FANTA MENJIVAR - Last Filed: 07/03/20 10:04> Assessment and Plan Pt states she's ready to go home. RN reports difficulty obtaining IV access. Pt declining IV restart; denies pain, fever, chills, and all complaints today. Pt >24hrs afebrile. POC discussed with pt and RN for possible discharge home today on PO meds. Dr Casey consulted. D/C home dependant upon culture ID and sensitivities. - Patient Problems (1) 29 weeks gestation of Current Visit: Yes Status: Acute Plan to address problem: Continue to monitor (2) Febrile illness, acute Current Visit: Yes Status: Acute Plan to address problem: No evidence of chorio at this time Coronavirus PCR result negative Blood cultures pending; preliminary result negative Urine cultures pending; preliminary result gram negative goldie Renal ultrasound with bilateral hydronephrosis ID consult completed (3) Hypokalemia Current Visit: Yes Status: Acute Plan to address problem: labs and medications as ordered (4) Hyponatremia Current Visit: Yes Status: Acute Plan to address problem: labs ordered Subjective - Subjective Date of service: 07/03/20 Principal diagnosis: IUP @ 29+4; fever Patient reports: movement normal, no new complaints, no loss of fluid, no vaginal bleeding, no contractions Objective - Vital Signs Vital Signs: Vital Signs - 12hr 07/02/20 07/03/20 07/03/20 23:26 00:26 03:38 Temperature 98.6 F 98.4 F Pulse Rate 110 H Respiratory Rate Blood Pressure 97/56 Blood Pressure [Right] O2 Sat by Pulse Oximetry 07/03/20 07/03/20 07/03/20 03:39 08:18 08:52 Temperature 97.8 F 98.2 F Pulse Rate 112 H 105 H 96 H Respiratory 18 18 Rate Blood Pressure 105/64 109/68 Blood Pressure 109/68 101/57 [Right] O2 Sat by Pulse 100 Oximetry 07/03/20 08:53 Temperature Pulse Rate 96 H Respiratory Rate Blood Pressure 101/57 Blood Pressure [Right] O2 Sat by Pulse Oximetry - Exam Breasts: deferred Cardiovascular: Regular rate Lungs: Normal air movement Abdomen: Present: normal appearance, soft Uterus: Present: normal FHR: auscultation normal, category 1 Uterine Contraction Monitor Mode: External Uterine Contraction Pattern: Absent Uterine Tone Measurement Phase: Resting Extremities: normal - Labs Labs: Abnormal Labs 06/30/20 06/30/20 06/30/20 19:40 20:30 Unknown WBC 13.9 H RBC Hgb Hct MCHC 35 H Lymph % (Auto) 8.2 L [place] % (Auto) 7.8 H Lymph # (Auto) 1.1 L [place] # (Auto) 1.1 H Seg Neutrophils % 83.8 H Seg Neutrophils # 11.7 H Sodium 130 L Potassium 3.2 L Chloride 97.8 L Carbon Dioxide 19 L BUN Creatinine 0.5 L Glucose 112 H Calcium 8.3 L Total Protein Albumin 3.4 L Urine WBC (Auto) 71.0 H U Epithel Cells (Auto) 42.0 H 07/01/20 07/01/20 07/02/20 08:04 08:04 10:35 WBC 11.7 H RBC 3.15 L Hgb 9.1 L Hct 27.3 L MCHC Lymph % (Auto) 8.9 L [place] % (Auto) 8.8 H Lymph # (Auto) 1.0 L [place] # (Auto) 1.0 H Seg Neutrophils % 82.1 H Seg Neutrophils # 9.6 H Sodium 135 L Potassium 3.3 L 3.3 L Chloride Carbon Dioxide 20 L BUN 5 L Creatinine 0.4 L Glucose 106 H Calcium 7.6 L Total Protein 5.7 L Albumin 2.6 L Urine WBC (Auto) U Epithel Cells (Auto) Laboratory Results - last 24 hr 07/02/20 10:35 Potassium 3.3 L <NILDA CASEY D - Last Filed: 07/03/20 11:46> Assessment and Plan - Patient Problems (1) Pyelonephritis affecting Current Visit: Yes Status: Acute Qualifiers: Trimester: third trimester Qualified Code(s): O23.03 - Infections of kidney in , third trimester Plan to address problem: Will allow home on Ceftin 500mg bid for 14days followed by suppression therapy daily until delivered. Prescription sent to [facility] thru office EMR. (2) Kidney stone Current Visit: Yes Status: Acute Plan to address problem: Non obstucting. Will have patient follow up with urology as an outpatient (3) 29 weeks gestation of Current Visit: Yes Status: Acute (4) Febrile illness, acute Current Visit: Yes Status: Resolved (5) Hypokalemia Current Visit: Yes Status: Resolved (6) Hyponatremia Current Visit: Yes Status: Acute Objective - Vital Signs Vital Signs: Vital Signs - 12hr 07/03/20 07/03/20 07/03/20 00:26 03:38 03:39 Temperature 98.6 F 98.4 F Pulse Rate 112 H Respiratory Rate Blood Pressure 105/64 Blood Pressure [Right] O2 Sat by Pulse Oximetry 07/03/20 07/03/20 07/03/20 08:18 08:52 08:53 Temperature 97.8 F 98.2 F Pulse Rate 105 H 96 H 96 H Respiratory 18 18 Rate Blood Pressure 109/68 101/57 Blood Pressure 109/68 101/57 [Right] O2 Sat by Pulse 100 Oximetry 07/03/20 07/03/20 10:04 10:05 Temperature 98.2 F Pulse Rate 104 H 104 H Respiratory 18 Rate Blood Pressure 108/58 Blood Pressure 108/58 [Right] O2 Sat by Pulse Oximetry - Labs Labs: Abnormal Labs 06/30/20 06/30/20 06/30/20 19:40 20:30 Unknown WBC 13.9 H RBC Hgb Hct MCHC 35 H Lymph % (Auto) 8.2 L [place] % (Auto) 7.8 H Lymph # (Auto) 1.1 L [place] # (Auto) 1.1 H Seg Neutrophils % 83.8 H Seg Neutrophils # 11.7 H Sodium 130 L Potassium 3.2 L Chloride 97.8 L Carbon Dioxide 19 L BUN Creatinine 0.5 L Glucose 112 H Calcium 8.3 L ALT Total Protein Albumin 3.4 L Urine WBC (Auto) 71.0 H U Epithel Cells (Auto) 42.0 H 07/01/20 07/01/20 07/02/20 08:04 08:04 10:35 WBC 11.7 H RBC 3.15 L Hgb 9.1 L Hct 27.3 L MCHC Lymph % (Auto) 8.9 L [place] % (Auto) 8.8 H Lymph # (Auto) 1.0 L [place] # (Auto) 1.0 H Seg Neutrophils % 82.1 H Seg Neutrophils # 9.6 H Sodium 135 L Potassium 3.3 L 3.3 L Chloride Carbon Dioxide 20 L BUN 5 L Creatinine 0.4 L Glucose 106 H Calcium 7.6 L ALT Total Protein 5.7 L Albumin 2.6 L Urine WBC (Auto) U Epithel Cells (Auto) 07/03/20 09:20 WBC RBC Hgb Hct MCHC Lymph % (Auto) [place] % (Auto) Lymph # (Auto) [place] # (Auto) Seg Neutrophils % Seg Neutrophils # Sodium Potassium 3.5 L Chloride Carbon Dioxide 20 L BUN 3 L Creatinine 0.3 L Glucose Calcium 8.1 L ALT 6 L Total Protein 5.8 L Albumin 2.6 L Urine WBC (Auto) U Epithel Cells (Auto) Laboratory Results - last 24 hr 07/03/20 09:20 Sodium 138 Potassium 3.5 L Chloride 106.6 Carbon Dioxide 20 L Anion Gap 15 BUN 3 L Creatinine 0.3 L Estimated GFR > 60 BUN/Creatinine Ratio 10 Glucose 69 Calcium 8.1 L Total Bilirubin 0.20 AST 9 ALT 6 L Alkaline Phosphatase 93 Total Protein 5.8 L Albumin 2.6 L Albumin/Globulin Ratio 0.8
[2020-07-03 10:22] LABS: Alanine Aminotransferase 6 units/L (7-56); Albumin 2.6 g/dL (3.9-5); Blood Urea Nitrogen 3 mg/dL (7-17); Calcium 8.1 mg/dL (8.4-10.2); Hemolysis Index 4
[2020-07-03 10:23] LABS: BUN/Creatinine Ratio 10
--- NOTE | 2020-07-03 12:16 | Discharge Summary ---
Providers - Providers Date of Admission: 06/30/20 20:14 Date of discharge: 07/03/20 (pt desires discharge home) Attending physician: NILDA JOSUE 07/01/20 07:28 Consult to Physician [CONS] Routine Comment: Consulting Provider: ELLE MCGUIRE Physician Instructions: Reason For Exam: febrile illness Primary care physician: NILDA JOSUE Hospitalization Reason for admission: other (fever of unknown origin and 29wks gestation) Discharge diagnosis: other (acute pyelonephritis) Condition at discharge: Good Disposition: DC-[id number] TO HOME OR SELFCARE - Discharge Diagnoses (1) 29 weeks gestation of Status: Acute (2) Febrile illness, acute Status: Resolved (3) Hypokalemia Status: Resolved (4) Hyponatremia Status: Acute Plan - Provider Discharge Summary Activity: routine Diet: routine Instructions: routine Additional instructions: [] Smoking cessation referral if applicable(refer to patient education folder for contact #) [] Refer to [facility]'s [facility] Booklet Call your doctor immediately for: * Fever > 100.5 * vaginal bleeding more than spotting * Severe persistent headache * Shortness of breath * Reddened, hot, painful area to leg or breast * >6 contractions per hour, unrelieved by hydration and bladder emptying * decreased movement <10 movements per hour, unresolved with drinking something cold to wake the baby up or eating a meal. Please call Dr. Velazquez's number on the business card you were given and make an appt to follow up within 1 week. Please follow up with our MYOBGYN office within 1 week. Please take your antibiotics as prescribed, twice per day for the next 14 days, then once per day for the duration of . - Follow up plan Follow up: EDSON GROVER MD [Staff Physician] - 7 Days NILDA JOSUE MD [Primary Care Provider] - 7 Days ELLE MCGUIRE MD [Staff Physician] - 7 Days Forms: [facility] Discharge Summary
[2020-07-03 12:19] VITALS: BP 114/76
--- NOTE | 2020-07-03 12:53 | Progress Note ---
Assessment and Plan Cultures: Urine culture 07/15/2020 E. coli> 100,000 CFU. Blood culture 06/30/2020 no growth. Assessment: 19-year-old female with no medical history, admitted on 06/30/2020 with 29 weeks , secondary to 24-hour history of chills high fever, right lower back pain/flank pain: #Acute sepsis: resolved no fever for 48h; likely due to UTI/pyelonephritis. Blood cultures neg. Chest x-ray negative. #Acute UTI: Urine culture growing gram-negative bacilli. US with bilateral mild hydronephrosis and 3mm left kidney stone. Urine culture grew E. coli sensitive to cefazolin. # 29 weeks Recommendations: -Okay to discharge on Ceftin 500 mg p.o. twice daily to complete 14 days, followed by 500 mg p.o. daily for chronic suppression until the end of -Follow-up with urology as an outpatient if renal colic -ID clinic follow-up in 1 to 2 weeks Will follow. Kassandra Caba MD Infectious Diseases [facility] M [phone] O [phone] Subjective Date of service: 07/03/20 Principal diagnosis: IUP @ 29+4; fever Interval history: Patient is feeling better. No fever for 48 hours. Wants to go home. Objective - Exam Narrative Exam: General appearance: Alert in NAD pleasant Eyes: anicteric sclerae, moist conjunctivae; no lid-lag; PERRLA HENT: Normocephalic, Atraumatic; normal external ears, nares open, oropharynx clear Neck: supple, tracheal midline, no JVD Lungs: CTA, with normal respiratory effort and no intercostal retractions CV: RRR no murmur Abdomen: Soft, non-tender; uterus. No costovertebral angle tenderness Extremities: no edema, no cyanosis Skin: No rash. Psych: no agitated Neuro: alert and oriented x 3. Moving all extermities - Constitutional Vitals: Vital Signs Temp Pulse Resp BP Pulse Ox 98.2 F 96 H 18 101/57 98 07/03/20 08:52 07/03/20 08:53 07/03/20 08:52 07/03/20 08:53 07/03/20 08:18 Temperature -Last 24 Hours Temperature 98.2 F Temperature 97.8 F Temperature 98.4 F Temperature 98.6 F Temperature 98.6 F Temperature 97.8 F Temperature 98.6 F - Labs CBC & Chem 7: 07/01/20 08:04 07/03/20 09:20 Labs: Abnormal lab results 07/02/20 Range/Units 10:35 Potassium 3.3 L (3.6-5.0) mmol/L
== END 2020-07-03 13:30 | disposition home or self-care (01) | DRG 781 ==
LOC: TRG 17:41 → APU 18:42 → UNDOADMIN 20:14 → TRG 20:14 → LD 20:14
PROVIDERS: ADMIT Obstetrics & Gynecology; ATTEND Obstetrics & Gynecology
DX: O26.893 Other specified pregnancy related conditions, third trimester (principal); Z3A.29 29 weeks gestation of pregnancy; E87.1 Hypo-osmolality and hyponatremia; Z20.822 Contact with and (suspected) exposure to COVID-19; E87.6 Hypokalemia; N20.0 Calculus of kidney; Z79.899 Other long term (current) drug therapy
CPT/HCPCS: 36415; 59025; 71045; 76770; 80053; 81001; 82010; 82140; 84132; 85025; 86850; 86900; 86901; 87040; 87076; 87086; 87186; 96360; 96361; G0378; J0696; J7030; J7042; J7120; U0003

== ENCOUNTER 2020-09-08 04:03 | Inpatient (IN) | payer MEDICAID ==
[2020-09-08] MEDS ORDERED: MINERAL OIL 30 ML ORAL LIQD ONE (04:40)
[2020-09-08] MEDS ORDERED: OXYTOCIN DRIP 30,000 MILLIUNITS/500 ML BAG IV ONE (04:40)
[2020-09-08] MEDS ORDERED: LIDOCAINE (2%) 20 MG/1 ML VIAL 20 ML MDV INFILTRATI ONE (04:41)
[2020-09-08] MEDS ORDERED: OXYTOCIN 10 UNIT/1 ML INJ ONE (04:42)
--- NOTE | 2020-09-08 05:32 | History and Physical Report ---
History of Present Illness Date of examination: 09/08/20 Date of admission: 09/08/20 04:40 Chief complaint: contractions q5mins since 0200 History of present illness: EDC Confirmation: 09/14/2020 Past History : 2 Term Births: 1 Premature Births: 0 Living Children: 1 Para: 1 Mult. Births: 0 Prev : 0 Prev. attempt? 0 Aborta: 0 Elect. Ab: 0 Spont. 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 % Sun Exposure: rarely Family History Risk Factors: Family History of MT in females < 65 years old: no Family History of MT in males < 55 years old: no Dietary Counseling: pn yes Previous Alcohol Use: Signed On - 01/03/2017 Alcohol use: no Past Medical History: Reviewed history from 01/03/2017 and no changes required: Negative Past Medical History Past Surgical History: Reviewed history from 01/03/2017 and no changes required: negative Past Medical History Anesthesia Complications: negative Anemia: negative Autoimmune Disorder: negative Bleeding Disorder: negative Blood Transfusions: negative Breast Disease: negative Diabetes: negative Heart Disease: negative Hypertension: negative Hepatitis/Liver Disease: negative Kidney Disease/UTI: negative Neurologic/Epilepsy/Migraines: negative Phlebitis/Varicosities: negative Psychiatric: negative Pulmonary Disease/Asthma: negative Thyroid Disease: negative Hospitalizations: negative Surgery (Non-experience design director): negative Abnormal PAP: negative EMILY Exposure: negative Infertility: negative Uterine Anomaly: negative Uterine Surgery (not C/S): negative Other Gynecologic Problems: negative Social Hx: Patient is single [employer] 12 th grade Infection History Hx of STD: none HIV Risk Eval: no Hepatitis B Risk Eval: low risk Personal hx. of genital herpes: no Partner hx. of genital herpes: no Rash, Viral, or Febrile illness since last LMP? no Varicella/Chicken Pox Status: No TB Risk: no Genetic History Congenital Heart Defect: Mom: no Dad: no Annmarie Disease: Mom: no Dad: no Thalassemia Mom: no Dad: no Neural Tube Defect Mom: no Dad: no Down's Syndrome Mom: no Dad: no Rubén-Sachs Mom: no Dad: no Sickle Cell Disease/Trait Mom: no Dad: no Hemophilia Mom: no Dad: no Muscular Dystrophy Mom: no Dad: no Cystic Fibrosis Mom: no Dad: no Sumner Chorea Mom: no Dad: no Mental Retardation Mom: no Dad: no Fragile X Mom: no Dad: no Other Genetic/Chromosomal Disorder Mom: no Dad: no Child w/other defect Mom: no Dad: no Enviromental Exposures Xray Exposure: no Medication, drug, or alcohol use since LMP: no Chemical/Other Exposure: no Exposure to Cat Liter: yes Hx of Parvovirus (Fifth Disease): no Occupational Exposure to Children: none Active Medications (reviewed today): TABLET ( VIT-FE FUMARATE-FA TABS) Current Allergies (reviewed today): No known allergies Past History Past Medical History: no pertinent history, other (see HPI) Past Surgical History: no surgical history, other (see HPI) 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 (see HPI) Family/Genetic History: other (see HPI) Social history: no significant social history, other (see HPI) - Obstetrical History Expected Date of Delivery: 09/14/20 Actual Gestation: 39 Week(s) 1 Day(s) : 2 Para: 1 Hx # Term Pregnancies: 1 Number of Pregnancies: 0 Spontaneous Abortions: 0 Induced : 0 Number of Living Children: 1 Medications and Allergies Allergies Allergy/AdvReac Type Severity Reaction Status Date / Time No Known Allergies Allergy Verified 08/18/17 08:10 Home Medications Medication Instructions Recorded Confirmed Last Taken Type One Daily Tablet 1 tab PO DAILY 06/30/20 06/30/20 06/29/20 10:00 History Review of Systems All systems: negative Genitourinary: contractions - Vital Signs Vital signs: Vital Signs Pulse BP 96 H 138/73 09/08/20 04:40 09/08/20 04:40 Temp Pulse Resp BP Pulse Ox 73 124/71 09/08/20 05:17 09/08/20 05:17 - Physical Exam Breasts: Positive: normal Cardiovascular: Regular rate Lungs: Positive: Normal air movement Abdomen: Positive: normal appearance, soft Genitourinary (Female): Positive: normal external genitalia, normal perenium Vulva: both: normal Vagina: Positive: normal moisture (SROM light meconium) Uterus: Positive: normal size, normal contour Anus/Rectum: Positive: normal perianal skin Extremities: Positive: normal - Obstetrical FHR: auscultation normal, category 1 Uterine Contraction Monitor Mode: External Cervical Dilatation: 9 (per 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 GBS negative Tests: (1) Profile I ([id number]) Order Note: Clinical Information: SRC:UR HBsAg Screen Negative Negative *1 RPR Non Reactive Non Reactive *2 Rubella Antibodies, IgG [L] <0.90 index Immune >0.99 *3 Non-immune <0.90 Equivocal 0.90 - 0.99 Immune >0.99 ABO Grouping O *4 Rh Factor Positive *5 Please note: Prior records for this patient's ABO / Rh type are not available for additional verification. Antibody Screen Negative Negative *6 WBC 7.1 x10E3/uL 3.4-10.8 *7 RBC 4.38 x10E6/uL 3.77-5.28 *8 Hemoglobin 13.0 g/dL 11.1-15.9 *9 Hematocrit 39.7 % 34.0-46.6 *10 MCV 91 fL 79-97 *11 MCH 29.7 pg 26.6-33.0 *12 MCHC 32.7 g/dL 31.5-35.7 *13 RDW 12.6 % 11.7-15.4 *14 Platelets 300 x10E3/uL 150-450 *15 Neutrophils 62 % Not Estab. *16 Lymphs 30 % Not Estab. *17 Monocytes 6 % Not Estab. *18 Eos 2 % Not Estab. *19 Basos 0 % Not Estab. *20 ! Immature Cells <No Reported Value> *21 Neutrophils (Absolute) 4.4 x10E3/uL 1.4-7.0 *22 Lymphs (Absolute) 2.1 x10E3/uL 0.7-3.1 *23 Monocytes(Absolute) 0.4 x10E3/uL 0.1-0.9 *24 Eos (Absolute) 0.1 x10E3/uL 0.0-0.4 *25 Baso (Absolute) 0.0 x10E3/uL 0.0-0.2 *26 ! Immature Granulocytes 0 % Not Estab. *27 ! Immature Grans (Abs) 0.0 x10E3/uL 0.0-0.1 *28 ! NRBC <No Reported Value> *29 Hematology Comments: <No Reported Value> *30 Tests: (2) AFP Tetra ([id number]) ! Results Report *31 ! Test Results: *Screen Negative* *32 ! Gest. Age on Collection Date 17.0 WEEKS *33 ! Gestat. Age Based On Ultrasound *34 17.0 on 04/08/2020 ! M[age] MARILIN [age] yr *35 ! Race Other *36 ! Weight 148 lbs *37 ! Insulin Dep Diabetes No *38 ! Multiple Gestation No *39 ! AFP Value 45.1 ng/mL *40 ! AFP MoM 1.18 *41 ! hCG Value 11628 mIU/mL *42 ! hCG MoM 0.93 *43 ! uE3 Value 2.33 ng/mL *44 ! uE3 MoM 1.94 *45 ! JOE Value 276.22 pg/mL *46 ! JOE MoM 1.69 *47 ! OSBR Risk 1 IN 6916 *48 ! DSR (Second Trimester) 1 IN 3076 *49 ! DSR (By Age) 1 IN 1128 *50 ! T18 Risk Not increased *51 ! T18 (By Age) 1:4395 *52 ! Interpretation NL42 *53 Interpretation: Screen Negative This result is screen negative for OSB, Down Syndrome and Trisomy 18. The AFP MoM and patient specific risks calculated are based on the gestational age and the clinical information provided. This test can identify up to 80% of open neural tube defects. Closed neural tube defects and some open defects may not be detected by this test. The combination of maternal age, AFP, hCG, uE3, and JOE identifies 75-80% of Down Syndrome. The combination of maternal age, AFP, hCG and uE3 identifies 60% of Trisomy 18 pregnancies. The [place] [employer] recommends amniocentesis be offered to women age 35 and older. Recalculations are not recommended when gestational dating by LMP and ultrasound are within 10 days. ! Comments: [facility] *54 Sally Trevizo, Ph.D., [facility] Director References: Available Upon Request. Multiples Of Median Cutoffs Abbreviation Definitions For AFP Elevations IDD- Insulin Dep Diabetes Tracy 2.5 Black 2.8 OSBR- Open Spina Bifida IDD 2.0 Twins 4.5 Risk DSR Cutoff 1:270 DSR- Down Syndrome Risk T18 Cutoff 1:100 T18- Trisomy 18 Down Syndrome and Trisomy 18 screening are considered Investigational For further inquiries contact [employer] at [phone]. Tests: (3) HIV Ag/Ab with Reflex ([id number]) HIV Screen 4th Generation wRfx Non Reactive Non Reactive *55 Tests: (4) HCV Ab w/Rflx to Verification ([id number]) ! HCV Ab <0.1 s/co ratio 0.0-0.9 *56 Tests: (5) Comment: ([id number]) ! Comment: SPRCS *57 Non reactive HCV antibody screen is consistent with no HCV infection, unless recent infection is suspected or other evidence exists to indicate HCV infection. Tests: (6) Urine Culture, Routine ([id number]) Urine Culture, Routine Final report *58 Tests: (7) Result ([id number]) ! Result 1 No growth *59 Assessment and Plan @39wks RONY presents to triage with c/o ctx q5mins since 0200. carpenter labor supervisor reports pt SROM light meconium stained fluid once in bed and SVE 9cm. CNM to bedside and pt verbalizing urge to push. Records reviewed and unremarkable. Plan to admit pt to labor unit and anticipate . - Patient Problems (1) 39 weeks gestation of Current Visit: Yes Status: Acute (2) Active labor at term Current Visit: No Status: Acute (3) Rubella non-immune status, antepartum Current Visit: No Status: Acute (4) SROM (spontaneous rupture of membranes) Current Visit: No Status: Acute
--- NOTE | 2020-09-08 05:35 | Procedure Note ---
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
[2020-09-08] MEDS ORDERED: WITCH HAZEL/ GLYCERIN PAD TP PRN (05:51)
[2020-09-08] MEDS ORDERED: ONDANSETRON 4 MG/2 ML INJ IV PRN (05:51)
[2020-09-08] MEDS ORDERED: ACETAMINOPHEN 325 MG TAB PO PRN (05:51)
[2020-09-08] MEDS ORDERED: LANOLIN/ZINC/DIMETHICONE (LANSINOH) 7 GM TP PRN (05:51)
[2020-09-08] MEDS ORDERED: diphenhydrAMINE 25 MG CAP PO PRN (05:51)
[2020-09-08] MEDS ORDERED: MAGNESIUM HYDROXIDE (MOM) ORAL LIQD UDC PO PRN (05:51)
[2020-09-08] MEDS ORDERED: BENZOCAINE/MENTHOL 20/0.5% TOP SPRAY 56 GM TP PRN (05:51)
[2020-09-08] MEDS ORDERED: oxyCODONE /ACETAMINOPHEN 5-325MG TAB PO PRN (05:51)
[2020-09-08] MEDS ORDERED: PROMETHAZINE 25 MG TAB PO PRN (05:51)
[2020-09-08] MEDS: IBUPROFEN 800 MG TAB PO PRN ×2 (05:56→16:32)
[2020-09-08] MEDS ORDERED: OXYTOCIN DRIP 30 UNITS/500 ML BAG IV SCH (06:00)
[2020-09-08 06:43] LABS: Hematocrit 34.8 % (30.3-42.9); Hemoglobin 11.3 gm/dl (10.1-14.3); Mean Corpuscular HGB Conc 32 % (30-34); Mean Corpuscular Volume 82 fl (79-97); Platelet Count 272 K/mm3 (140-440); Red Blood Count 4.27 M/mm3 (3.65-5.03); Red Cell Distribution Width 16.4 % (13.2-15.2)
[2020-09-08] MEDS: PRENATAL VIT27-FE FUMARATE-FOLIC ACID VIT TAB PO SCH (09:10)
[2020-09-08] MEDS: DOCUSATE SODIUM 100 MG CAP PO SCH ×2 (09:10→21:47)
[2020-09-08] MEDS ORDERED: ACETAMINOPHEN 500 MG TAB PO PRN (13:27)
--- NOTE | 2020-09-08 13:29 | Progress Note ---
Assessment and Plan A: 19 y.o. s/p approximately 10 hour ago. Normal course. BC: Depo. P: Continue with care. Anticipate discharge on 09/09. Depo ordered for BC. To be given before discharge home. Subjective - Subjective Date of service: 09/08/20 (Having some cramping with breast feeding.) Principal diagnosis: s/p Patient reports: appetite normal, voiding normally, pain well controlled, flatus, ambulating normally [place]: doing well Objective - Vital Signs Latest vital signs: Vital Signs Temp Pulse Resp BP BP 09/08/20 12:30 98.2 F 94 H 20 102/72 09/08/20 09:30 98.4 F 93 H 20 106/63 09/08/20 09:17 16 09/08/20 06:40 98.4 F 72 20 105/59 09/08/20 06:02 86 126/94 09/08/20 05:56 18 09/08/20 05:46 81 119/69 09/08/20 05:31 75 122/68 09/08/20 05:30 98.3 F 20 09/08/20 05:17 73 124/71 09/08/20 04:54 82 109/57 09/08/20 04:40 96 H 138/73 Intake and Output 09/07/20 09/08/20 09/08/20 22:59 06:59 14:59 Intake Total 680 Output Total 200 1000 Balance -200 -320 Intake: Oral 680 Output: Urine 200 1000 Void 200 1000 Other: Total, Intake Amount 360 Total, Output Amount 200 600 Weight 368 lb 2.751 oz 167 lb 5.294 oz Estimated Blood Loss 100 Patient Weight 09/09/20 06:59 Weight 167 lb 5.294 oz - Exam Breasts: Present: deferred Cardiovascular: Present: Regular rate Lungs: Present: Normal air movement Abdomen: Present: normal appearance, soft Vulva: both: normal Uterus: Present: normal, firm, other (Small amount of lochia rubra noted. ) Extremities: Present: normal - Labs Labs: Abnormal lab results 09/08/20 Range/Units 04:45 WBC 12.7 H (4.5-11.0) K/mm3 MCH 26 L (28-32) pg RDW 16.4 H (13.2-15.2) %
[2020-09-08 15:45] LABS: Hematocrit 28.5 % (30.3-42.9); Hemoglobin 9.5 gm/dl (10.1-14.3)
[2020-09-09] MEDS: IBUPROFEN 800 MG TAB PO PRN ×2 (05:47→12:30)
[2020-09-09] MEDS ORDERED: MEASLES, MUMPS & RUBELLA 12,500 UNIT/0.5 ML VACCINE SUB-Q ONE (05:51)
[2020-09-09] MEDS ORDERED: TETANUS,DIPH,PERTUSS(ACELL) VACCINE 0.5 ML SYRINGE IM ONE (05:53)
--- NOTE | 2020-09-09 09:09 | Discharge Summary ---
Providers - Providers Date of Admission: 09/08/20 05:51 Date of discharge: 09/09/20 Attending physician: NILDA JOSUE 09/08/20 05:54 Consult to Clinical Associate [CONS] Routine Reason For Exam: assistance with , SNS Primary care physician: NILDA JOSUE Hospitalization Reason for admission: active labor, rupture of membranes, IUP at term Delivery: Episiotomy: none Laceration: none Other procedures: none complications: none Discharge diagnosis: IUP at term delivered Terry baby: female Condition at discharge: Good Disposition: DC-01 TO HOME OR SELFCARE - Discharge Diagnoses (1) 39 weeks gestation of Status: Acute (2) Active labor at term Status: Acute (3) Rubella non-immune status, antepartum Status: Acute (4) SROM (spontaneous rupture of membranes) Status: Acute Plan - Provider Discharge Summary Activity: routine, no sex for 6 weeks, no heavy lifting 4 weeks, no strenuous exercise Diet: routine Instructions: routine Additional instructions: [] Smoking cessation referral if applicable(refer to patient education folder for contact #) [] Refer to [facility]'s [facility] Booklet Call your doctor immediately for: * Fever > 100.5 * Heavy vaginal bleeding ( >1 pad per hour) * Severe persistent headache * Shortness of breath * Reddened, hot, painful area to leg or breast * Drainage or odor from incision. * Keep incision clean and dry at all times and follow doctor's instructions regarding bathing/showering Congratulations! Please call [phone] and make an appointment in 4 weeks for your visit. Please continue taking iron supplement at home as discussed. Thank you! - Follow up plan Follow up: NILDA JOSUE MD [Primary Care Provider] - 7 Days Forms: [facility] Discharge Summary
[2020-09-09] MEDS: PRENATAL VIT27-FE FUMARATE-FOLIC ACID VIT TAB PO SCH (09:47)
[2020-09-09] MEDS: DOCUSATE SODIUM 100 MG CAP PO SCH (09:47)
[2020-09-09] MEDS ORDERED: medroxyPROGESTERone ACETATE 150 MG/ML SYRINGE IM ONE (10:00)
[2020-09-09] MEDS ORDERED: FERROUS SULFATE 325 MG TAB PO SCH (10:00)
[2020-09-09 11:36] LABS: Hematocrit 29.8 % (30.3-42.9); Hemoglobin 9.6 gm/dl (10.1-14.3)
[2020-09-09 17:29] VITALS: BP 108/70
== END 2020-09-09 21:50 | disposition home or self-care (01) | DRG 775 ==
LOC: TRG 04:03 → APU 04:10 → TRG 04:39 → LD 04:40 → OBSVTOIN 05:51 → OB 06:34
PROVIDERS: ADMIT Obstetrics & Gynecology; ATTEND Obstetrics & Gynecology
PROC: 10E0XZZ Delivery of Products of Conception, External Approach (ICD-10-PCS; principal; 2020-09-08)
DX: O62.3 Precipitate labor (principal); Z37.0 Single live birth; Z3A.39 39 weeks gestation of pregnancy; O77.0 Labor and delivery complicated by meconium in amniotic fluid; Z20.822 Contact with and (suspected) exposure to COVID-19
CPT/HCPCS: 36415; 59025; 85014; 85018; 85027; 86592; 86850; 86900; 86901; 96360; 99211; G0378; G0463; J1050; J2590; U0003